=== PATIENT | female | born 1955 | race Caucasian/White ===

== ENCOUNTER 2021-01-28 08:33 | Outpatient (CLI) | payer MEDICARE, SELFPAY ==
[2021-01-28 08:52] LABS: Hematocrit 43.5 % (35.0-42.0); Hemoglobin 14.6 g/dL (11.7-13.8); Mean Corpuscular HGB Conc 33.6 g/dL (32.0-36.0); Mean Corpuscular Hemoglobin 31.8 pg (27.0-31.0); Mean Corpuscular Volume 94.8 fL (78.0-102.0); Mean Platelet Volume 9.2 fl (9.2-11.8); Platelet Count Result 251 K/mm3 (150-420); Red Blood Count 4.59 M/mm3 (4.20-5.40); Red Cell Distribution Width 12.5 % (11.6-14.4); White Blood Count 5.6 K/mm3 (4.8-10.8)
[2021-01-28 09:30] LABS: Alanine Aminotransferase 19 U/L (14-59); Albumin Level 4.2 g/dL (3.4-5.0); Alkaline Phosphatase 91 U/L (46-116); Anion Gap 9 mmol/L (8-16); Aspartate Amino Transferase 11 U/L (15-37); Bilirubin,Total 0.7 mg/dL (0.00-1.00); Blood Urea Nitrogen 10 mg/dL (7-18); Carbon Dioxide 29 mmol/L (21-32); Chloride 106 mmol/L (98-108); Cholesterol 183 mg/dL (0-200); Estimated Glomerular Filt Rate > 60; Glucose 96 mg/dL (70-99); HDL Direct 56 mg/dL (40-60); LDL Cholesterol Calculated 111 mg/dL (<130); Osmolality Calculated 297 mOsm/kg (285-295); Potassium 4.1 mmol/L (3.5-5.1); Total Protein 7.1 g/dL (6.4-8.2); Triglycerides 82 mg/dL (0-150)
[2021-01-28 09:48] LABS: Sodium 144 mmol/L (136-145)
[2021-02-03 19:30] LABS: Hepatitis A Antibody IgM Nonreactive; Hepatitis B Core Antibody Nonreactive (Nonreactive); Hepatitis B Surface Antigen Nonreactive (Nonreactive); Hepatitis C Additional Testing Has been added; Hepatitis C Virus Antibody Reactive (Nonreactive)
[2021-02-04 16:21] LABS: Hepatitis C Viral RNA PCR <15 IU/mL
== END 2021-01-28 08:34 | disposition home or self-care (01) ==
LOC: CHSLAB 08:35
PROVIDERS: PCP Family Medicine; Visit Provider Family Medicine
DX: M25.571 Pain in right ankle and joints of right foot (principal); Z13.6 Encounter for screening for cardiovascular disorders; R56.9 Unspecified convulsions; M81.0 Age-related osteoporosis without current pathological fracture; B18.2 Chronic viral hepatitis C; Z01.89 Encounter for other specified special examinations
CPT/HCPCS: 36415; 80053; 80061; 80074; 85027

== ENCOUNTER 2022-09-26 07:27 | Outpatient (CLI) | payer MEDICARE, SELFPAY ==
[2022-09-26 07:50] LABS: Basophils Absolute Auto 0.04 K/mm3 (0.00-0.10); Basophils Percent Auto 0.6 % (0.0-1.0); Eosinophils Absolute Auto 0.28 K/mm3 (0.02-0.50); Eosinophils Percent Auto 4.5 % (1.0-6.0); Hematocrit 43.4 % (35.0-42.0); Hemoglobin 14.7 g/dL (11.7-13.8); Immature Granulocyte Absolute 0.02 K/mm3 (0.00-0.00); Immature Granulocyte Percent A 0.3 % (0.0-0.0); Lymphocytes Absolute Auto 2.08 K/mm3 (1.10-4.50); Lymphocytes Percent Auto 33.5 % (18.0-42.0); Mean Corpuscular HGB Conc 33.9 g/dL (32.0-36.0); Mean Corpuscular Hemoglobin 32.1 pg (27.0-31.0); Mean Corpuscular Volume 94.8 fL (78.0-102.0); Mean Platelet Volume 9.8 fl (9.2-11.8); Monocytes Absolute Auto 0.61 K/mm3 (0.10-0.90); Monocytes Percent Auto 9.8 % (2.0-11.0); Neutrophils Absolute Auto 3.2 K/mm3 (1.7-7.2); Neutrophils Percent Auto 51.3 % (50.0-70.0); Platelet Count Result 243 K/mm3 (150-420); Red Blood Count 4.58 M/mm3 (4.20-5.40); Red Cell Distribution Width 12.4 % (11.6-14.4); White Blood Count 6.2 K/mm3 (4.8-10.8)
[2022-09-26 08:41] LABS: Alanine Aminotransferase 14 U/L (14-59); Albumin Level 4.3 g/dL (3.4-5.0); Alkaline Phosphatase 87 U/L (46-116); Anion Gap 8 mmol/L (8-16); Bilirubin,Total 0.7 mg/dL (0.00-1.00); Blood Urea Nitrogen 13 mg/dL (7-18); Calcium 9.2 mg/dL (8.5-10.1); Carbon Dioxide 29 mmol/L (21-32); Chloride 105 mmol/L (98-108); Estimated Glomerular Filt Rate > 60; Glucose 94 mg/dL (70-99); Osmolality Calculated 294 mOsm/kg (285-295); Potassium 4.1 mmol/L (3.5-5.1); Sodium 142 mmol/L (136-145); Total Protein 7.1 g/dL (6.4-8.2)
[2022-09-26 08:51] LABS: Aspartate Amino Transferase 12 U/L (15-37)
[2022-09-29 15:21] LABS: Lamotrigine Lamictal 2.7 mcg/mL (2.5-15.0)
[2022-09-29 19:46] LABS: Levetiracetam Keppra 31.2 mcg/mL (6.0-46.0)
== END 2022-09-26 07:28 | disposition home or self-care (01) ==
LOC: CHSLAB 07:32
PROVIDERS: PCP Family Medicine
DX: G40.209 Localization-related (focal) (partial) symptomatic epilepsy and epileptic syndromes with complex partial seizures, not intractable, without status epilepticus (principal)
CPT/HCPCS: 36415; 80053; 80175; 80177; 85025

== ENCOUNTER 2024-09-28 09:21 | Outpatient (CLI) | payer MEDICARE, SELFPAY ==
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
--- OUTSIDE RECORDS SUMMARY | 2024-09-28 09:24 | XMS_ITS | Clinical Summary ---
Author Organization [facility] Address [facility] [place] [address] Care Team Providers Care Director Of Events Name Role Phone Estevan Coles MD Primary Care Provider [phone] Dale Pierre MD Unavailable [phone] Allergies No known active allergies Medications aspirin EC 325 MG EC tablet Take 325 mg by mouth every 6 (six) hours as needed for Pain. Active dorzolamide-dexter olol 22.3-6.8 MG/ML Solution Place 1 drop into both eyes 2 (two) times daily. Active latanoprost 0.005 % ophthalmic solution Place 1 drop into both eyes nightly at bedtime. Active levETIRAcetam 1000 MG tablet Take 1,500 mg by mouth 2 (two) times daily. Active Active Problems Problem Noted Date Diagnosed Date PFO with atrial septal aneurysm ([facility]/HCC) 2017 Abnormal EKG 03/04/2017 Substance abuse 03/04/2017 Syncope HTN (hypertension) Social History Tobacco Use Types Packs/Day Years Used Date Smoking Tobacco: Former Smokeless Tobacco: Never Alcohol Use Standard Drinks/Week Comments Yes 0 (1 standard drink = 0.6 oz pur e alcohol) Comments Unknown Sex and Gender Information Value Date Recorded Sex Assigned at Not on file Legal Sex Female 7:58 PM CDT Gender Identity Not on file Sexual Orientation Not on file Occupation Industry Job Start Date Job End Date retired Not on file Not on file Not on file Last Filed Vital Signs Vital Sign Reading Time Taken Comments Blood Pressure 147/90 08/10/2019 10:23 AM CDT Pulse 95 08/10/2019 10:23 AM CDT Temperature 36 C (96.8 F) 08/10/2019 10:23 AM CDT Respiratory Rate 16 08/10/2019 10:23 AM CDT Oxygen Saturation 96% 08/10/2019 10:23 AM CDT Inhaled Oxygen Concentration - - Weight 73.9 kg (163 lb) 08/10/2019 10:23 AM CDT Height 167.6 cm (5' 6) 08/10/2019 10:23 AM CDT Body Mass Index 26.31 08/10/2019 10:23 AM CDT Plan of Treatment Health Maintenance Due Date Last Done Comments Colorectal Cancer Screening Colonoscopy (10 Years) 1955 Hepatitis C 08/13/1971 DTaP, Tdap and Td Vaccines ( 1 - Tdap) 1972 Mammogram Screening 1993 Zoster Vaccines (2 of 2) 08/04/2018 06/09/2018 Annual Medicare Wellness Visit 2018 Dexa Scan (General) 2018 Pneumococcal Vaccine: 50+ Ye ars (2 of 2 - PPSV23) 06/10/2019 06/09/2018 COVID-19 Vaccine (1 - 2023-2 5 season) 2023 RSV Immunization or 60+ Years (1 - 1-dose 75+ series) 2028 Meningococcal B Vaccine Aged Out No l onger eligible based on patient's age to complete this topic Meningococcal Vaccine Aged Out No reggie jayy eligible based on patient's age to complete this topic RSV Immunizations Under 20 Months Aged Out No longer eligible based on patient's age to complete this topic [place] [address] [place] [address] [employer] MEDICARE Care Teams Director Of Events Relationship Specialty Start Date End Date Estevan Coles MD [address] [place] [id number] PCP - General INTERNAL MEDICINE 03/03/17 Dale Pierre MD [address] [place] [address] [place] Quotation Clerk CARDIOVASCULAR DISEASE 03/03/17
--- OUTSIDE RECORDS SUMMARY | 2024-09-28 09:24 | XMS_ITS | Encounter Summary ---
Author Organization [facility] Address [facility] [place] [address] Care Team Providers Care Civil Service Clerk Name Role Phone Estevan Coles MD Primary Care Provider [phone] Dale Pierre MD Unavailable [phone] Encounter Details Date Type Department Care Team (Late st Contact Info) Description 02/24/2017 Abstract [facility] [address] [place] [address] Dale Pierre MD [address] [place] [address] Social History Tobacco Use Types Packs/Day Years [...] file Not on file Not on file documented as of this encounter Plan of Treatment Not on file documented as of this encounter Visit Diagnoses Not on filedocumented in this encounter Care Teams Civil Service Clerk Relationship Specialty Start Date End Date Estevan Coles MD [address] [place] [address] PCP - General INTERNAL MEDICINE 03/03/17 Dale Pierre MD [address] [place] [address] [place] Sales Development Manager CARDIOVASCULAR DISEASE 03/03/17 documented as of this encounter
--- OUTSIDE RECORDS SUMMARY | 2024-09-28 09:24 | XMS_ITS | Continuity of Care Document ---
Author Organization [facility] Address [id number] [place] [address] Exec utive [facility] [address] [place] [address] Phone Care Team Providers Care Senior Linux Unix Administrator Name Role Phone Bing Larry Unavailable Advance Directives Directive Yes / No Effective Date File Name No Information Encounters Encounter Description Practice Location Reason(s) For Visit Diagnoses Date Provider Providers Copied on Encounter [facility], [address] [place] [address] [address], [place], [place], [id number], [place] tel:[phone] [facility] No Information 0 7-200 4 Kendy Smart. [address] , [address], [place], [address], [place]. tel:[phone] Family History Family Member Type Diagnosis Age [...]
--- OUTSIDE RECORDS SUMMARY | 2024-09-28 09:24 | XMS_ITS | Clinical Summary ---
Author Organization [facility] Address [address] [place] [address] Care Team Providers Care Tanker Service Attendant Name Role Phone Estevan Coles MD Primary Care Provider [phone] Allergies Active Allergy Reactions Criticality Noted Date [...] seizure-free interval she may resume driving under [place] guidelines. She will follow-up in neurology clinic in 1 year Assessment & Plan (05/06/2020 12:52 PM HARDWARE DESIGN ENGINEER): Patient has had several additional complex partial [...] DFE Assessment & Plan (02/16/2019 8:20 PM HARDWARE DESIGN ENGINEER): IOP is likely too high given her [...] symptoms. Assessment & Plan (05/11/2018 11:47 AM HARDWARE DESIGN ENGINEER): intraocular pressure (IOP) acceptable on 5 classes Fair tolerance of meds Discussed options with pt- Prefers to continue meds for now F/U with Dr. Vanegas in 3months and here in 6 mos with Gandhi visual field (HVF) and OCT Primary open angle glaucoma (POAG) of right eye, mild stage 11/16/2017 Assessment & Plan (09/21/2019 9:36 PM CDT): IOP likely > target for manager intermediate with fluctuations. Lower today on same meds Stable HVF CPM for now Assessment & Plan (02/16/2019 8:21 PM HARDWARE DESIGN ENGINEER): IOP likely > target for manager intermediate 20 than it has been (high teens) Stable HVF CPM for now Assessment & Plan (11/09/2018 1:01 PM CDT): intraocular pressure (IOP) acceptable on current management of 4 classes IOP was a little higher today than it has been but in general she has been high teens No changes on VF or OCT OD today CPM Assessment & Plan (05/11/2018 11:45 AM HARDWARE DESIGN ENGINEER): intraocular pressure (IOP) acceptable on current management of 4 classes Mid-upper teens F/U with Dr. Vanegas for intraocular pressure (IOP) check in 3 months and back here in 6 months with Gandih visual field (HVF) and OCT Assessment & [...] Observe Assessment & Plan (02/16/2019 8:21 PM HARDWARE DESIGN ENGINEER): Not VS- no change with BAT Observe [...] Conjugate PCV 13 06/09/2018 ZOSTER Recombinant 06/09/2018 Surgical History Surgery Date Site/Laterality Comments TONSILLECTOMY HYSTERECTOMY APPENDECTOMY Medical History Medical History Date Comments Glaucoma Cataract Seizures (HCC) Hypertension Syncope Family History Medical History Relation Name Comments Testicular cancer Brother 1 Heart defect Brother 2 Heart defect Brother 3 No Known Problems Brother 4 Heart disease Father Family history of cardiac disorder - (Added by TW Conv) Dementia Mother Family history of dementia - (Added by TW Conv) Glaucoma Paternal Grandmother Family history of glaucoma - (Added by TW Conv) Macular degeneration Paternal Grandmother Family history of macular degeneration - (Added by TW Conv) Heart defect Sister 1 No Known Problems Sister 2 Relation Name Status Comments Brother 1 Brother 2 Alive Brother 3 Alive Brother 4 Alive Father Mother Paternal Grandmother Sister 1 Alive Sister 2 Alive Social History Tobacco Use Types Packs/Day Years [...] on file Legal Sex Female 2:20 PM HARDWARE DESIGN ENGINEER Gender Identity Not on file Sexual Orientation Not on file Occupation Industry Job Start Date Job End Date Retired Not on file Not on file Not on file Obstetrics History Last Filed Vital Signs Vital Sign Reading [...] 10/21/2023 9:48 AM CDT Plan of Treatment Health Maintenance Due Date Last Done Comments Breast Cancer Screening-Mammogram 1955 Colon Cancer Screening-Colonoscopy 1955 Depression Screening 1953 Fall Risk Assessment 1955 Hepatitis C Screening 1955 Osteoporosis Screening-Bone Density Scan 1953 DTaP/Tdap/Td Vaccine (1 - Tdap) 1964 Hepatitis B Screening 08/13/1971 Zoster Vaccine (2 of 2) 08/04/2018 06/09/2018 Well Visit 65+ 2018 Pneumococcal vaccine 65+ (2 of 2 - PPSV23) 06/10/2019 06/09/2018 Influenza Vaccine (Season Ended) 2024 Insurance MEDICARE [facility] [place] [id number] MEDICARE [facility] AET MEDICARE AET[employer] Care Teams Tanker Service Attendant Relationship Specialty Start Date End Date Estevan Coles MD [address] [place] [address] PCP - General 03/17/17
[2024-09-28 10:02] LABS: Hematocrit 42.9 % (35.0-42.0); Hemoglobin 14.1 g/dL (11.7-13.8); Immature Granulocyte Percent A 0.3 % (0.0-0.0); Lymphocytes Absolute Auto 2.27 K/mm3 (1.10-4.50); Mean Corpuscular HGB Conc 32.9 g/dL (32-36); Mean Corpuscular Hemoglobin 31.2 pg (27.0-31.0); Mean Corpuscular Volume 94.9 fL (78.0-102.0); Nucleated Red Blood Cells Absolute Auto 0.00 K/mm3 (0.00-0.00); Nucleated Red Blood Cells Perc 0.0 % (0-0.0); Platelet Count Result 225 K/mm3 (150-420); Red Blood Count 4.52 M/mm3 (4.20-5.40); White Blood Count 6.5 K/mm3 (4.8-10.8)
[2024-09-28 10:51] LABS: Alanine Aminotransferase 16 U/L (6-35); Albumin Level 4.4 g/dL (3.5-5.1); Alkaline Phosphatase 89 U/L (38-126); Anion Gap 8 mmol/L (4-12); Aspartate Amino Transferase 23 U/L (14-36); Bilirubin,Total 0.7 mg/dL (0.2-1.3); Blood Urea Nitrogen 13 mg/dL (7-17); Calcium 9.3 mg/dL (8.4-10.2); Carbon Dioxide 29 mmol/L (22-30); Chloride 105 mmol/L (98-107); Cholesterol 195 mg/dL (0-200); Estimated Glomerular Filt Rate > 60; Glucose 95 mg/dL (65-110); HDL Direct 62 mg/dL; Osmolality Calculated 294 mOsm/kg (285-295); Potassium 4.3 mmol/L (3.4-5.0); Sodium 142 mmol/L (137-145); Total Protein 6.8 g/dL (6.3-8.2); Triglycerides 109 mg/dL (<150)
[2024-09-28 11:22] LABS: Thyroid Stimulating Hormone Reflex 2.160 uIU/mL (0.465-4.68)
== END 2024-09-28 09:22 | disposition home or self-care (01) ==
PROVIDERS: PCP Family Medicine; Visit Provider Family Medicine
DX: E03.9 Hypothyroidism, unspecified (principal); R56.9 Unspecified convulsions
CPT/HCPCS: 36415; 80053; 80061; 80177; 84443; 85025

== ENCOUNTER 2024-10-26 07:34 | Outpatient (CLI) | payer MEDICARE, SELFPAY ==
--- OUTSIDE RECORDS SUMMARY | 2003-07-12 19:00 | XMS_ITS | Continuity of Care Document ---
Author Organization [facility] Address [id number] [place] [address] Exec utive [facility], [place] [address] [place] [address] Phone Care Team Providers Care Alignment Mechanic Name Role Phone Bing Larry Unavailable Advance Directives Directive Yes / No Effective Date File Name No Information Encounters Encounter Description Practice Location Reason(s) For Visit Diagnoses Date Provider Providers Copied on Encounter [facility], [id number] [place] [address] [address], [place], [place], [id number], [place] tel:[phone] [facility] No Information [phone] Kendy Smart. [address] , [address], [place], [address], [place]. tel:[phone] Family History Family Member Type Diagnosis Age At Onset No Information Payers Payer name Insurance type Covered alliance party ID Authoriza tion(s) No Information Social History Type Description Quantity Date Captured Comments Sex Female Smoking Status No Information Chief Complaint And Reason For Visit No Information Reason For Referral Reason For Referral No Information History Of Present Illness Encounter Date Complaint History Of Prese nt Illness No Information Functional Status Date Functional Assessmen t No Information Instructions Date Instruction Additional Infor mation No Information Assessments Type Assessment Date No Information Patient Care Teams Name Effective Dates (start - stop) Status Members No Information
--- OUTSIDE RECORDS SUMMARY | 2024-10-26 07:50 | XMS_ITS | Clinical Summary ---
Author Organization [facility] Address [address] [place] [address] Care Team Providers Care Bread Icer Name Role Phone Estevan Coles MD Primary Care Provider [phone] Allergies Active Allergy Reactions Criticality Noted Date Comments Netarsudil Swelling,Redness Medium 09/20/2019 With gtts Medications dorzolamide-ti molol (COSOPT) 22.3-6.8 mg/mL ophthalmic solution Administer 1 drop into both eyes 2 (two) times a day 10 mL 11 04/03/19 20 Active latanoprost (XALATAN) 0.005 % ophthalmic solution Administer 1 drop into both eyes nightly 2.5 mL 1 09/03/19 21 Active levETIRAcetam (KEPPRA) 750 mg tablet Take 2 tablets (1,500 mg total) by mouth 2 (two) times a day 360 tablet 3 10/20/19 25 026 Active lamoTRIgine (LaMICtal) 100 mg tabletIndicati ons: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) Take 1 tablet (100 mg total) by mouth 2 (two) times a day 180 tablet 3 10/20/19 25 026 Active lamoTRIgine (LaMICtal) 100 mg tabletIndicati ons: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) Take 1 tablet (100 mg total) by mouth 2 (two) times a day 180 tablet 3 10/21/19 24 025 Discontinued(Re order) levETIRAcetam (KEPPRA) 1,000 mg tabletIndicati ons:Tonic-Clon ic Epilepsy Treatment Adjunct Take 2 tablets (2,000 mg total) by mouth 2 (two) times a day 360 tablet 3 10/21/19 24 025 Discontinued levETIRAcetam (KEPPRA) 1,000 mg tabletIndicati ons: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 She will follow-up in neurology clinic in 1 year Assessment & Plan (05/06/2020 12:52 PM RACING SECRETARY): Patient has had several additional complex partial [...] DFE Assessment & Plan (02/16/2019 8:20 PM RACING SECRETARY): IOP is likely too high given her [...] symptoms. Assessment & Plan (05/11/2018 11:47 AM RACING SECRETARY): intraocular pressure (IOP) acceptable on 5 classes Fair tolerance of meds Discussed options with pt- Prefers to continue meds for now F/U with Dr. 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 Lower today on same meds Stable HVF CPM for now Assessment & Plan (02/16/2019 8:21 PM RACING SECRETARY): IOP likely > target for predatory animal exterminator 20 than it has been (high teens) Stable HVF CPM for now Assessment & Plan (11/09/2018 1:01 PM CDT): intraocular pressure (IOP) acceptable on current management of 4 classes IOP was a little higher today than it has been but in general she has been high teens No changes on VF or OCT OD today CPM Assessment & Plan (05/11/2018 11:45 AM RACING SECRETARY): intraocular pressure (IOP) acceptable on current management [...] Observe Assessment & Plan (02/16/2019 8:21 PM RACING SECRETARY): Not VS- no change with BAT Observe Assessment & Plan (11/10/2018 5:37 PM CDT): Not visually significant- Check BAT next visit in 3 months with Dilation Assessment & Plan (01/05/2018 12:19 PM CDT): NVS but could consider combined CEIOL/glc procedure Assessment & Plan (11/17/2017 11:23 AM CDT): NVS but could consider combined CEIOL/glc procedure Abnormal EKG 03/04/2017 Encounters Date Type Department Care Team Description 10/19/2024 9:30 AM CDT Office Visit [facility] Neurology [address] [place] [id number] Sherrell, Sarthak Young MD 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 Never 10/28/2020 Comments No Sex and Gender Information Value Date Recorded Sex Assigned at Not on file Legal Sex Female 2:20 PM RACING SECRETARY Gender Identity Not on file Sexual Orientation Not on file Occupation Industry Job Start Date Job End Date Retired Not on file Not on file Not on file Obstetrics History Last Filed Vital Signs Vital Sign Reading Time Taken Comments Blood Pressure 168/96 10/19/2024 9:27 AM CDT Pulse 66 10/19/2024 9:27 AM CDT Temperature 36.6 C (97.8 F) 10/21/2021 10:55 AM CDT Respiratory Rate - - Oxygen Saturation - - Inhaled Oxygen Concentration - - Weight 72.6 kg (160 lb) 10/19/2024 9:27 AM CDT Height 167.6 cm (5' 6) 10/19/2024 9:27 AM CDT Body Mass Index 25.82 10/19/2024 9:27 AM CDT Plan of Treatment Health Maintenance [...] Pneumococcal vaccine 65+ (2 of 2 - PCV20 or PCV21) 06/201906/09/2018 Influenza Vaccine (#1) 2024 Insurance MEDICARE [facility] [place] [id number] MEDICARE [facility] MEDICARE [employer] Care Teams Bread Icer Relationship Specialty Start Date End Date Estevan Coles MD [address] [place], [place] [id number] PCP - General 03/17/17
--- OUTSIDE RECORDS SUMMARY | 2024-10-26 07:50 | XMS_ITS | Encounter Summary ---
Author Organization [facility] Address [facility]ly [facility] [place] [address] Care Team Providers Care Telesales Team Leader Name Role Phone Estevan Coles MD Primary Care Provider [phone] Dale Pierre MD Unavailable Encounter Details Date Type Department Care Team (Late st Contact Info) Description 02/24/2017 Abstract [facility] [address] [place] [address] Dale Pierre MD [address] [place] [address] Social History Tobacco Use Types [...] on filedocumented in this encounter Care Teams Telesales Team Leader Relationship Specialty Start Date End Date Estevan Coles MD [address] [place] [address] PCP - General INTERNAL MEDICINE 03/03/17 Dale Pierre MD [address] [place] [address] [place] Floral Artist CARDIOVASCULAR DISEASE 03/03/17 documented as of this encounter
--- OUTSIDE RECORDS SUMMARY | 2024-10-26 07:50 | XMS_ITS | Clinical Summary ---
Author Organization [facility] Address [facility] [place] [address] Care Team Providers Care [place] Name Role Phone Estevan Coles MD Primary Care Provider [phone] Dale Pierre MD Unavailable Allergies No known active allergies Medications aspirin [...] Diagnosed Date PFO with atrial septal aneurysm ([facility]/HCC) 2017 Abnormal EKG 03/04/2017 Substance abuse 03/04/2017 [...] patient's age to complete this topic [place] [address] [place] [address] [employer] MEDICARE Care Teams [place] Relationship Specialty Start Date End Date Estevan Coles MD [address] [place] [id number] PCP - General INTERNAL MEDICINE 03/03/17 Dale Pierre MD [address] [place] [address] [employer] Project Controller CARDIOVASCULAR DISEASE 03/03/17
== END 2024-10-26 07:35 | disposition home or self-care (01) ==
LOC: CHSLAB 07:38
PROVIDERS: PCP Family Medicine
DX: G40.209 Localization-related (focal) (partial) symptomatic epilepsy and epileptic syndromes with complex partial seizures, not intractable, without status epilepticus (principal)
CPT/HCPCS: 80175; 80177